=== PATIENT | female | born 1945 | race Caucasian/White ===

== ENCOUNTER 2017-02-26 08:59 | Outpatient (CLI) | payer MEDICARE ==
--- NOTE | 2017-02-26 10:13 | Ultrasound Report ---
ULTRASOUND ABDOMEN LIMITED INDICATION: Elevated LFTs. COMPARISON: 03/15/2010. FINDINGS: Right upper quadrant sonography demonstrates diffusely echogenic liver with grossly preserved contours. No definite focal suspicious lesion or biliary dilatation. Right hepatic lobe estimated at 17.5 cm in midclavicular length. Gallbladder now surgically absent. Common bile duct is 6.2 mm. Imaged pancreas, nonaneurysmal abdominal aorta, IVC and the right kidney appear within normal limits. CONCLUSION: Fatty, mildly enlarged liver and interval cholecystectomy without acute sonographic abnormality, as described. Thank you for the opportunity to participate in this patient's care.
== END 2017-02-26 09:00 | disposition home or self-care (01) ==
LOC: US 08:59
PROVIDERS: ATTEND Internal Medicine Gastroenterology
DX: K76.0 Fatty (change of) liver, not elsewhere classified (principal); R94.5 Abnormal results of liver function studies; I10 Essential (primary) hypertension; E11.9 Type 2 diabetes mellitus without complications; F32.9 Major depressive disorder, single episode, unspecified; F41.9 Anxiety disorder, unspecified; Z90.49 Acquired absence of other specified parts of digestive tract
CPT/HCPCS: 76705